=== PATIENT | female | born 1965 | race Native Hawaiian/Other Pacific Islander ===

== ENCOUNTER 2016-10-08 07:17 | Day surgery (SDC) | payer OTHER ==
[2016-10-07 11:31] VITALS: BMI 23.8
[2016-10-08 08:33] VITALS: O2SAT 100
[2016-10-08] MEDS ORDERED: Propofol 10 mg/ml Inj (20 ML) ONE (08:53)
[2016-10-08] MEDS ORDERED: Midazolam 2 MG/2 ML VIAL ONE (08:53)
[2016-10-08] MEDS ORDERED: ceFAZolin IV 1 gm in Dextrose 50 ML IVPB ONE (09:08)
--- NOTE | 2016-10-08 10:08 | PCM.SURG1 ---
Surgeon's Initial Post Op Note - Surgeon's Notes Surgeon: dr cunningham Ambulatory Analyst: none Type of Anesthesia: General LMA Anesthesia Administered By: dr estrada Pre-Operative Diagnosis: 51 yr with end thickening r/o polyp Operative Findings: see the op reoprt Post-Operative Diagnosis: same with small polyp Operation Performed: d &c, htysterscopy, polypectomy Specimen/Specimens Removed: ecc. emc. plyp Estimated Blood Loss: EBL {In ML}: 20 Blood Products Given: N/A Drains Used: No Drains Post-Op Condition: Good Date of Surgery/Procedure: 10/08/16 Time of Surgery/Procedure: 10:30
[2016-10-08] MEDS ORDERED: Lactated Ringer's 1,000 ML IV ONE (11:20)
[2016-10-08 11:34] VITALS: RESP 16; TEMP 97.3
[2016-10-08 12:41] VITALS: BP 115/74; PULSE 58
--- NOTE | 2016-10-11 07:44 | OP ---
PROCEDURE DATE: 10/08/2016 PREOPERATIVE DIAGNOSIS: A 51-year-old 2, para 2 with endometrial thickening, rule out endome trial polyp. SURGEON: Danielito Arora MD [employer] PRINCIPAL SURGEON: None. ANESTHESIA: General LMA. ANESTHESIOLOGIST: Jason Balderas MD. OPERATIVE FINDINGS: Will dictate later. POSTOPERATIVE DIAGNOSIS: A 51-year-old 2, para 2 with endometrial thickening, rule out endom etrial polyp with a small polyp. ____ polypectomy ____ ESTIMATED BLOOD LOSS: 20 mL. COMPLICATIONS: None. PROCEDURE: After informed consent was obtained, the patient was brought to the operating room, place d on the table where general anesthesia was given. When anesthesia was found adequate she was preppe d and draped in normal sterile fashion. Examination has found the uterus to be 8-9 weeks size. No a dnexal masses. Anterior lip of the cervix was grasped with the tenaculum. Gentle dilatation of the cervix was done. The cervix was very stenosed, Hegar dilator were used with the smallest dilator. T hen, the hysteroscope was introduced. Most of the endometrial lining was atrophic and small polyp wa s seen on the left side of the uterine wall. After sharp curettage was done, the polyp was taken out and sent to the pathology. After that ____ was done and ____ pathology ____. There were no complic ations. x2. Danielito Arora MD cc: [id number] TT: 10/08/2016 20:45:04 jn
== END 2016-10-08 12:02 | disposition home or self-care (01) ==
LOC: C.SDS 07:17 → EDBD 07:17 → C.SDS 12:02
PROVIDERS: ATTEND Obstetrics & Gynecology
DX: N84.0 Polyp of corpus uteri (principal)